=== PATIENT | female | born 2000 | race Caucasian/White ===

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

== ENCOUNTER 2022-08-10 16:15 | Inpatient (IN) | payer BC ==
[~2022-08-10] VITALS: Ht 165.1 cm; Wt 48.0 kg
[~2022-08-10 16:15] MED LIST: FLUO20CA39 PO; LEVO25TA2 PO; LISD30CA2 PO
[2022-08-10 21:41] VITALS: BP 116/78
[2022-08-10] MEDS ORDERED: mag hydrox/Alum hydrox/simeth 30ml oral suspension PO PRN (21:45)
[2022-08-10] MEDS ORDERED: acetaminophen 325mg tablet PO PRN ×2 (21:45)
[2022-08-10] MEDS ORDERED: magnesium hydroxide 30ml (MOM) UD suspension PO PRN (21:45)
[2022-08-10] MEDS ORDERED: loperamide 2mg capsule PO PRN (21:45)
--- NOTE | 2022-08-10 22:37 | NUR ---
LOADING UNIT TOOL SETTER NOTE: LEGAL HOLD: 5150 for DTS PSYCH HX: Five suicide attempts. Depression/anxiety. Clients' 17 yo brother committed suicide when client was 15. Her remaining brother had a psychotic break after the family lost their home in the [place]. Her brother is currently homeless in [place] (he has a prior to [facility]). Client has been admitted to [facility] in the past. MEDICAL HX: Duncan's thyroiditis. Client state's she has a BM "once a week" (since childhood). Denies hx of eating disorder. PROBLEM: Client presented to [facility] reporting overdosing on Zyrtec, tylenol, and mucinex. Client lives with her boyfriend and reports overwhelming life stressors (predominately financial). 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 INTERVENTION: Admit assessments. RESPONSE: Client arrived on unit at 21:14. She is a direct admit from [facility]. Client showered. Client is pleasant and soft spoken. Cooperative with admission. Mood and affect are depressed.
[2022-08-10] MEDS ORDERED: NICOTINE POLACRILEX 2 MG LOZENGE BC PRN (22:50)
[2022-08-11] MEDS: levoTHYROXINE 25mcg tablet PO SCH (07:40)
[2022-08-11 08:00] VITALS: BP 106/60
[2022-08-11] MEDS: lisdexamfetamine dimesylate 10mg capsule PO SCH (08:00)
[2022-08-11 08:18] LABS: CHOL/HDL RATIO 2.6 (0.00-4.99); CHOLESTEROL 98 MG/DL (0-200); HDL CHOLESTEROL 38 MG/DL (35-60); LDL CHOLESTEROL 49 MG/DL (50-100); TRIGLYCERIDES 89 MG/DL (20-135)
[2022-08-11] MEDS: nicotine 14mg patch - 24hr TD SCH (09:07)
--- NOTE | 2022-08-11 11:42 | NUR ---
Noted pt BMI 17.6 per EMR. Pt admit s/p intentional OD attempt appears WD/WN w/ normal strength and no edema/wounds per EMR. KATHERINE clayton/russ RN who reports pt thin but no visible signs of muscle/fat wasting evident; likely maintains lower wt at baseline. Pt on regular diet w/ no wheat bread per preference (not intolerance) pending PO trends per EMR. Will monitor for nutrition intervention needs this admit. Addendum: 08/11/22 at [address] Amended: Links added. Addendum: 08/11/22 at [address] Noted pt BMI 17.6 per EMR. Pt admit s/p intentional OD attempt appears WD/WN w/ normal strength and no edema/wounds per EMR. KATHERINE osorio RN who reports pt thin but no visible signs of muscle/fat wasting evident. Pt reports no wt loss or decreased meal intake CHEMICAL ANALYTICAL SAMPLER per RN Malnutrition Screen; likely maintains lower wt at baseline. Pt on regular diet w/ no wheat bread per preference (not intolerance) pending PO trends per EMR. Will monitor for nutrition intervention needs this admit.
--- NOTE | 2022-08-11 14:12 | NUR ---
Nursing Progress Note: Problem : Client presented to [facility] reporting overdosing on Zyrtec, Tylenol, and Mucinex. Client lives with her boyfriend and reports overwhelming life stressors (predominately financial). 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 Interventions : Introduced self and established rapport, maintained a safe and supportive environment, ensured contract for safety, provide clear and simple instructions, and maintained Q 15 min safety checks. Response : Received pt. sleeping in bed at the beginning of the shift, she was awoken to attend breakfast in the Group Room and afterwards retreated back to bed. Pt. isolated in bed throughout much of the day resting with her head covered under the blankets. 1:1 was completed at bedside, pt. presents as cooperative, fatigued and guarded. Pt's speech is soft and she responds minimally to direct questions only. She denies any current S/I, however appears depressed and is possibly minimizing any MH s/s. Pt. refused her ordered Vyvanse 30mg and stated, "I only take it when I go to school." This was endorsed to GONZALEZ Munson. Plan : Pt. requires medication adjustments and a safe and supportive environment.
[2022-08-11 19:00] VITALS: BP 106/63
[2022-08-11] MEDS: hydrOXYzine 25 MG tablet PO PRN (20:36)
--- NOTE | 2022-08-12 00:59 | NUR ---
Nursing Progress Note: Problem : Client presented to [facility] reporting overdosing on Zyrtec, Tylenol, and Mucinex. Client lives with her boyfriend and reports overwhelming life stressors (predominately financial). 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 Interventions : Introduced self and established rapport, maintained a safe and supportive environment, ensured contract for safety, provide clear and simple instructions, and maintained Q 15 min safety checks. Response :The patient was in her room at shift change. The patient took her evening VS w/o issue. The patient presents closed off and quiet but polite. The patient was seen sitting in hallway on floor crying and talking on the phone. The patient ate evening snack. The patient took PRN Hydroxyzine at bed time for anxiety. The patient later approached this nurse and asked if she had to take medications that the provider had recently ordered for her. When asked if she had ever taken the medication before the patient said no. It was reiterated to the patient that she does not have to take the prescribed medications but it would be helpful to try the new medications so we know which meds will work for her. The patient walked away quietly and went to bed. Plan : Pt. requires medication adjustments and a safe and supportive environment.
[2022-08-12] MEDS: levoTHYROXINE 25mcg tablet PO SCH (07:25)
[2022-08-12 08:00] VITALS: BP 95/65
[2022-08-12] MEDS: lisdexamfetamine dimesylate 10mg capsule PO SCH (08:00)
[2022-08-12] MEDS: ESCITALOPRAM OXALATE 5 MG TABLET PO SCH (08:55)
[2022-08-12] MEDS: nicotine 14mg patch - 24hr TD SCH (08:56)
[2022-08-12] MEDS: hydrOXYzine 25 MG tablet PO PRN ×2 (13:21→20:32)
--- NOTE | 2022-08-12 14:10 | NUR ---
Pt's Vyvanse discontinued per GONZALEZ Munson. Pt. reported she does not wish to take this medication anymore.
--- NOTE | 2022-08-12 15:58 | NUR ---
Nursing Progress Note: Problem : Client presented to [facility] reporting overdosing on Zyrtec, Tylenol, and Mucinex. Client lives with her boyfriend and reports overwhelming life stressors (predominately financial). 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 Interventions : Maintained a safe and supportive environment, ensured contract for safety, provide clear and simple instructions, provided active listening and positive encouragement, provided medication education, and maintained Q 15 min safety checks. Response : Received pt. sleeping in bed at the beginning of the shift, she was awoken to attend breakfast in the Group Room and afterwards retreated back to bed as is her routine. 1:1 was completed at bedside, pt's speech remains soft and she continues to respond minimally to direct questions only. Her affect is constricted and she continues to present as guarded and appears to be minimizing any mental health s/s. Pt. does not make eye contact and looks down frequently, she is tearful at intervals, and states, "I just want to go home, I'm fine." Pt's parents were in to visit and spoke with this program writer regarding pt's plan of care with her consent. Pt. continued to perseverate on her desire to return home and appeared anxious and slightly irritable reporting that she does not want to take medications because she does not want to be, "Drugged." Pt's appetite continues to be decreased, and she makes intermittent statements regarding not eating until discharge. Staff provided education to pt. regarding the importance of nutrition and trying medications to find one that will work for her, and she reported understanding. At approximately 1300, pt. refused lunch and requested PRN Atarax r/t anxiety regarding her ongoing desire to discharge. Medication was administered with effectiveness, and pt. napped during the afternoon. Plan : Per GONZALEZ Munson, pt. requires medication adjustments and a safe and supportive environment.
[2022-08-12 20:00] VITALS: BP 113/77
--- NOTE | 2022-08-12 23:41 | NUR ---
Nursing Progress Note: Problem : Client presented to [facility] reporting overdosing on Zyrtec, Tylenol, and Mucinex. Client lives with her boyfriend and reports overwhelming life stressors (predominately financial). 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 Interventions : Introduced self and established rapport, maintained a safe and supportive environment, ensured contract for safety, provide clear and simple instructions, and maintained Q 15 min safety checks. Response :The patient was in her room quietly sitting on her bed at shift change. The patient continues to be guarded and labile at times. The patient perseverates on going home. Patient reports being afraid of taking the medication as that might be a sign of needing them. Medication education was given to the patient. The patient also reported not liking the food and only liked chicken nuggets and hamburgers for lunch and dinner and pancakes or waffles for breakfast. The patient would also like to drink ensures as she does not like the hospital food. The patient requested a shower and then took Hydroxyzine with good effect and went to bed shortly after. Plan : Pt. requires medication adjustments and a safe and supportive environment.
[2022-08-13] MEDS: levoTHYROXINE 25mcg tablet PO SCH (07:31)
[2022-08-13 08:00] VITALS: BP 105/57
[2022-08-13] MEDS: ESCITALOPRAM OXALATE 5 MG TABLET PO SCH (08:58)
[2022-08-13] MEDS: nicotine 14mg patch - 24hr TD SCH (08:59)
[2022-08-13] MEDS ORDERED: LEVO25TA2 PO (10:21)
[2022-08-13] MEDS ORDERED: ESCI5TAB PO (10:21)
--- NOTE | 2022-08-13 11:43 | NUR ---
Discharge Note: Pt. was discharged off the unit accompanied by staff to her parents who will be driving her home. Pt's belongings were inventoried and returned to her. This television script writer reviewed pt's medications and discharge instructions with her and she reported understanding. Pt. will pick up attendant her medications at her preferred pharmacy and will be making her own follow-up appointment with Dr. Pike Office. She is able to contract for safety.
== END 2022-08-13 11:43 | disposition home or self-care (01) | DRG 885 ==
LOC: ADULT MH 16:15
PROVIDERS: ADMIT Psychiatry & Neurology Psychiatry; ATTEND Psychiatry & Neurology Psychiatry
DX: F32.2 Major depressive disorder, single episode, severe without psychotic features (principal); F41.1 Generalized anxiety disorder; F90.9 Attention-deficit hyperactivity disorder, unspecified type; F17.200 Nicotine dependence, unspecified, uncomplicated; E03.9 Hypothyroidism, unspecified; T50.902A Poisoning by unspecified drugs, medicaments and biological substances, intentional self-harm, initial encounter; Z79.890 Hormone replacement therapy; Z81.8 Family history of other mental and behavioral disorders; Y92.89 Other specified places as the place of occurrence of the external cause; Z71.6 Tobacco abuse counseling
CPT/HCPCS: 36415; 80061; 83036; 84443; 87081; Q0177